=== PATIENT | female | born 1970 | race Caucasian/White ===

== ENCOUNTER 2020-04-17 10:59 | Outpatient (CLI) | payer BC, SELFPAY ==
[2020-04-19 20:10] LABS: SARS-CoV-2 RNA Undetected (Undetected)
== END 2020-04-17 11:19 ==
PROVIDERS: PCP Family Medicine; Visit Provider Internal Medicine
DX: Z11.59 Encounter for screening for other viral diseases (principal)
CPT/HCPCS: U0003